=== PATIENT | male | born 1985 | race Asian ===

== ENCOUNTER 2019-02-07 21:53 | Emergency (ER) | payer SELFPAY ==
[~2019-02-07] VITALS: Ht 162.6 cm; Wt 74.8 kg
[2019-02-07] MEDS ORDERED: KETO10 PO (23:54)
== END 2019-02-08 00:07 | disposition home or self-care (01) ==
LOC: ER 21:53
DX: L02.214 Cutaneous abscess of groin (principal); Z87.891 Personal history of nicotine dependence
CPT/HCPCS: 10061; 99282-25